=== PATIENT | female | born 1940 | race Caucasian/White ===

== ENCOUNTER 2022-06-09 07:40 | Inpatient (IN) | payer OTHER ==
[~2022-06-09] VITALS: Ht 160 cm; Wt 70.3 kg
[~2022-06-09 07:40] MED LIST: ceFAZolin SODIUM 2 GM in D5W 100 ML IV ONE
[2022-06-09] MEDS ORDERED: ePHEDrine sulfate 50 MG/ML VIAL ONE (13:15)
[2022-06-09] MEDS ORDERED: GLUCAGON,HUMAN RECOMBINANT 1 MG VIAL ONE (13:15)
[2022-06-09] MEDS ORDERED: LR 1,000 ML IV.SOLN IV ONE (13:15)
[2022-06-09] MEDS ORDERED: PROPOFOL 200MG/ 20ML VIAL (DIPRIVAN) IV ONE (13:15)
[2022-06-09] MEDS ORDERED: HYDROmorphone 2 MG/ML VIAL ONE (13:15)
[2022-06-09] MEDS ORDERED: ROCURONIUM BROMIDE 10 MG/ML (ZEMURON) ONE (13:15)
[2022-06-09] MEDS ORDERED: SEVOFLURANE 15 MIN GAS INH ONE (13:15)
[2022-06-09] MEDS ORDERED: GLYCOPYRROLATE 0.2 MG/ML VIAL ONE (13:15)
[2022-06-09] MEDS ORDERED: NS IRRIG SOLN 1000 ML IR ONE (13:15)
[2022-06-09] MEDS ORDERED: ONDANSETRON HCL 4 MG/2 ML VIAL ONE (13:15)
[2022-06-09] MEDS ORDERED: BUPIVACAINE /PF 0.5% 30 ML VIAL ONE (13:15)
[2022-06-09] MEDS ORDERED: SUGAMMADEX SODIUM 200 MG/2 ML VIAL IV ONE (13:15)
[2022-06-09] MEDS ORDERED: ONDANSETRON HCL 4 MG/2 ML VIAL IVP PRN ×2 (13:30→17:30)
[2022-06-09] MEDS ORDERED: HYDROmorphone 1 MG/ML INJ. CARTRIDGE ONE (13:52)
[2022-06-09] MEDS: HYDROmorphone 1 MG/ML INJ. CARTRIDGE IVP PRN ×2 (13:55→14:05)
[2022-06-09 14:40] VITALS: BP_SYST 141
[2022-06-09 16:00] VITALS: BP_SYST 150
[2022-06-09 16:30] VITALS: BP_SYST 149
[2022-06-09 16:45] VITALS: BP_SYST 143
[2022-06-09] MEDS: HYDROcodone/ACETAMIN 10-325 MG TAB PO PRN ×2 (17:16→22:53)
[2022-06-09] MEDS ORDERED: LORazepam 2 MG/ML VIAL IVP PRN (17:30)
[2022-06-09] MEDS ORDERED: HYDROmorphone 1 MG/ML INJ. CARTRIDGE IVP PRN (17:30)
[2022-06-09 19:20] VITALS: BP_SYST 120
[2022-06-09] MEDS ORDERED: amLODIPine BESYLATE 5 MG TABLET PO PRN (20:30)
[2022-06-09] MEDS: LR 1,000 ML IV SCH (22:40)
[2022-06-10] MEDS ORDERED: PIPERACILLIN/TAZOBACTAM 3.375 GM/VIAL (ZOSYN) IV ONE (00:24)
[2022-06-10] MEDS: PIPERACILLIN/TAZO 3.375/DEX-IS 50 ML IV SCH ×5 (00:34→23:01)
[2022-06-10 01:20] VITALS: BP_SYST 112
[2022-06-10 07:31] LABS: BASOPHILS % (AUTO) 0.4 % (0.0-2.0); EOSINOPHILS # (AUTO) 0.2 K/uL (0.0-0.4); EOSINOPHILS % (AUTO) 2.5 % (0.0-4.0); HEMATOCRIT 39.1 % (36-48); HEMOGLOBIN 13.2 g/dL (12.0-16.0); LYMPHOCYTES # (AUTO) 0.9 K/uL (1.0-5.5); MEAN CORPUSCULAR HEMOGLOBIN 32 pg (27-31); MEAN CORPUSCULAR HGB CONC 34 % (32-36); MEAN CORPUSCULAR VOLUME 95 fL (79.0-98.0); MONOCYTES # (AUTO) 0.8 K/uL (0.0-1.0); MONOCYTES % (AUTO) 9.8 % (1.7-9.3); NEUTROPHILS # (AUTO) 6.1 K/uL (1.8-7.7); NEUTROPHILS % (AUTO) 76.3 % (40.0-70.0); PLATELET COUNT (AUTO) 196 K/uL (130-430); RED BLOOD CELL COUNT(AUTO) 4.12 MIL/uL (4.2-6.2); WHITE BLOOD COUNT (AUTO) 8.1 K/uL (4.8-10.8)
[2022-06-10 07:47] LABS: INR 1.2 (0.8-1.2); PROTHROMBIN TIME 11.9 SECS (9.5-12.5)
[2022-06-10 07:56] LABS: ALANINE AMINOTRANSFERASE 43 U/L (12-78); ANION GAP 6 (5-15); ASPARTATE AMINOTRANSFERASE 45 U/L (10-37); CALCIUM 8.2 mg/dL (8.4-11.0); CHLORIDE 105 mmol/L (98-107); CREATININE 1.29 mg/dL (0.55-1.30); GLUCOSE 107 mg/dL (70-99); TOTAL BILIRUBIN 1.3 mg/dL (0.0-1.0); UREA NITROGEN, BLOOD 17 mg/dL (8-21)
[2022-06-10 08:00] VITALS: BP_SYST 117
[2022-06-10] MEDS: METOPROLOL SUCCINATE 50 MG TAB.SR.24H (TOPROL XL) PO SCH (09:00)
[2022-06-10 12:00] VITALS: BP_SYST 92
[2022-06-10] MEDS: LR 1,000 ML IV SCH ×2 (12:19→23:01)
[2022-06-10] MEDS ORDERED: PROPOFOL 200MG/ 20ML VIAL (DIPRIVAN) IV ONE (13:00)
[2022-06-10] MEDS ORDERED: LR 1,000 ML IV.SOLN IV ONE (13:00)
[2022-06-10] MEDS ORDERED: SUCCINYLCHOLINE CHLORIDE 20 MG/ML(QUELICIN) ONE (13:00)
[2022-06-10] MEDS ORDERED: EPINEPHrine HCL 1 MG/ML VIAL ONE (13:00)
[2022-06-10] MEDS ORDERED: SEVOFLURANE 15 MIN GAS INH ONE (13:00)
[2022-06-10] MEDS ORDERED: ONDANSETRON HCL 4 MG/2 ML VIAL ONE (13:00)
[2022-06-10] MEDS ORDERED: DEXAMETHASONE SOD PHOSPHATE 4 MG/ML VIAL ONE (13:00)
[2022-06-10] MEDS ORDERED: SIMETHICONE 40 MG/0.6 ML ML ONE (13:00)
[2022-06-10] MEDS ORDERED: INDOMETHACIN 50 MG SUPP.RECT RC ONE (14:00)
[2022-06-10] MEDS ORDERED: iohexoL 240 mgI/mL, 50 ML INFUS..BTL IV ONE (14:29)
[2022-06-10] MEDS ORDERED: METOCLOPRAMIDE HCL 10 MG/2 ML VIAL IVP PRN (15:00)
[2022-06-10] MEDS ORDERED: ONDANSETRON HCL 4 MG/2 ML VIAL IVP PRN (15:00)
[2022-06-10] MEDS ORDERED: HYDROmorphone 1 MG/ML INJ. CARTRIDGE ONE (15:20)
[2022-06-10] MEDS ORDERED: NALOXONE HCL 0.4 MG/ML AMP (NARCAN) IVP PRN (15:30)
[2022-06-10] MEDS ORDERED: HYDROmorphone 1 MG/ML INJ. CARTRIDGE IVP PRN (15:30)
[2022-06-10] MEDS: HYDROcodone/ACETAMIN 10-325 MG TAB PO PRN (15:53)
[2022-06-10 19:40] VITALS: BP_SYST 141
[2022-06-11 00:10] VITALS: BP_SYST 107
[2022-06-11] MEDS: HYDROcodone/ACETAMIN 10-325 MG TAB PO PRN ×4 (02:38→22:13)
[2022-06-11] MEDS: PIPERACILLIN/TAZO 3.375/DEX-IS 50 ML IV SCH ×4 (05:04→23:57)
[2022-06-11 07:51] LABS: BASOPHILS % (AUTO) 0.1 % (0.0-2.0); HEMOGLOBIN 13.6 g/dL (12.0-16.0); LYMPHOCYTES # (AUTO) 0.8 K/uL (1.0-5.5); LYMPHOCYTES % (AUTO) 7.2 % (20.5-51.5); MEAN CORPUSCULAR HEMOGLOBIN 32 pg (27-31); MEAN CORPUSCULAR HGB CONC 34 % (32-36); MEAN CORPUSCULAR VOLUME 94 fL (79.0-98.0); MONOCYTES # (AUTO) 0.6 K/uL (0.0-1.0); MONOCYTES % (AUTO) 5.2 % (1.7-9.3); NEUTROPHILS # (AUTO) 9.8 K/uL (1.8-7.7); NEUTROPHILS % (AUTO) 87.5 % (40.0-70.0); PLATELET COUNT (AUTO) 203 K/uL (130-430); RED BLOOD CELL COUNT(AUTO) 4.25 MIL/uL (4.2-6.2); RED CELL DISTRIBUTION WIDTH 13.5 % (9.0-15.0); WHITE BLOOD COUNT (AUTO) 11.2 K/uL (4.8-10.8)
[2022-06-11 08:00] VITALS: BP_SYST 137
[2022-06-11 08:01] LABS: ALANINE AMINOTRANSFERASE 47 U/L (12-78); ALBUMIN 3.2 g/dL (3.4-4.8); ANION GAP 8 (5-15); ASPARTATE AMINOTRANSFERASE 46 U/L (10-37); CALCIUM 8.7 mg/dL (8.4-11.0); CHLORIDE 103 mmol/L (98-107); CREATININE 1.22 mg/dL (0.55-1.30); GLUCOSE 156 mg/dL (70-99); TOTAL BILIRUBIN 0.9 mg/dL (0.0-1.0); UREA NITROGEN, BLOOD 13 mg/dL (8-21)
[2022-06-11 08:07] LABS: LIPASE 3476 U/L (73-393)
[2022-06-11] MEDS: METOPROLOL SUCCINATE 50 MG TAB.SR.24H (TOPROL XL) PO SCH (09:05)
[2022-06-11] MEDS: LR 1,000 ML IV SCH ×2 (09:06→13:00)
[2022-06-11 12:00] VITALS: BP_SYST 142
[2022-06-11 16:00] VITALS: BP_SYST 144
[2022-06-11 19:00] VITALS: BP_SYST 128
[2022-06-11 20:00] VITALS: BP_SYST 128
[2022-06-12] VITALS: BP_SYST 126
[2022-06-12] MEDS: PIPERACILLIN/TAZO 3.375/DEX-IS 50 ML IV SCH ×4 (05:26→23:23)
[2022-06-12 05:33] LABS: BASOPHILS % (AUTO) 0.1 % (0.0-2.0); EOSINOPHILS # (AUTO) 0.3 K/uL (0.0-0.4); EOSINOPHILS % (AUTO) 2.5 % (0.0-4.0); HEMATOCRIT 38.7 % (36-48); HEMOGLOBIN 13.1 g/dL (12.0-16.0); LYMPHOCYTES # (AUTO) 1.3 K/uL (1.0-5.5); LYMPHOCYTES % (AUTO) 10.6 % (20.5-51.5); MEAN CORPUSCULAR HEMOGLOBIN 32 pg (27-31); MEAN CORPUSCULAR HGB CONC 34 % (32-36); MEAN CORPUSCULAR VOLUME 95 fL (79.0-98.0); MONOCYTES % (AUTO) 8.1 % (1.7-9.3); NEUTROPHILS # (AUTO) 9.5 K/uL (1.8-7.7); NEUTROPHILS % (AUTO) 78.7 % (40.0-70.0); PLATELET COUNT (AUTO) 197 K/uL (130-430); RED BLOOD CELL COUNT(AUTO) 4.09 MIL/uL (4.2-6.2); WHITE BLOOD COUNT (AUTO) 12.1 K/uL (4.8-10.8)
[2022-06-12 06:00] LABS: ALANINE AMINOTRANSFERASE 39 U/L (12-78); ALBUMIN 2.9 g/dL (3.4-4.8); ANION GAP 6 (5-15); ASPARTATE AMINOTRANSFERASE 29 U/L (10-37); CALCIUM 8.2 mg/dL (8.4-11.0); CHLORIDE 106 mmol/L (98-107); CREATININE 1.19 mg/dL (0.55-1.30); GLUCOSE 106 mg/dL (70-99); LIPASE 689 U/L (73-393); TOTAL BILIRUBIN 0.6 mg/dL (0.0-1.0); UREA NITROGEN, BLOOD 12 mg/dL (8-21)
[2022-06-12 08:00] VITALS: BP_SYST 145
[2022-06-12] MEDS: METOPROLOL SUCCINATE 50 MG TAB.SR.24H (TOPROL XL) PO SCH (09:08)
[2022-06-12] MEDS: HYDROcodone/ACETAMIN 10-325 MG TAB PO PRN ×3 (10:41→22:06)
[2022-06-12] MEDS: LR 1,000 ML IV SCH ×2 (10:41→23:20)
[2022-06-12 11:32] VITALS: BP_SYST 146
[2022-06-12 20:00] VITALS: BP_SYST 126
[2022-06-13] VITALS: BP_SYST 96
[2022-06-13 05:22] LABS: BASOPHILS % (AUTO) 0.2 % (0.0-2.0); EOSINOPHILS # (AUTO) 0.4 K/uL (0.0-0.4); EOSINOPHILS % (AUTO) 3.8 % (0.0-4.0); HEMATOCRIT 37.8 % (36-48); HEMOGLOBIN 12.8 g/dL (12.0-16.0); LYMPHOCYTES # (AUTO) 1.6 K/uL (1.0-5.5); LYMPHOCYTES % (AUTO) 15.5 % (20.5-51.5); MEAN CORPUSCULAR HEMOGLOBIN 32 pg (27-31); MEAN CORPUSCULAR HGB CONC 34 % (32-36); MEAN CORPUSCULAR VOLUME 95 fL (79.0-98.0); MONOCYTES # (AUTO) 1.2 K/uL (0.0-1.0); MONOCYTES % (AUTO) 11.5 % (1.7-9.3); NEUTROPHILS # (AUTO) 7.1 K/uL (1.8-7.7); PLATELET COUNT (AUTO) 186 K/uL (130-430); RED BLOOD CELL COUNT(AUTO) 3.96 MIL/uL (4.2-6.2); RED CELL DISTRIBUTION WIDTH 13.6 % (9.0-15.0); WHITE BLOOD COUNT (AUTO) 10.3 K/uL (4.8-10.8)
[2022-06-13] MEDS: PIPERACILLIN/TAZO 3.375/DEX-IS 50 ML IV SCH ×4 (05:28→23:20)
[2022-06-13 08:00] VITALS: BP_SYST 126
[2022-06-13] MEDS: METOPROLOL SUCCINATE 50 MG TAB.SR.24H (TOPROL XL) PO SCH ×2 (08:52→10:00)
[2022-06-13] MEDS: HYDROcodone/ACETAMIN 10-325 MG TAB PO PRN ×4 (08:53→22:32)
[2022-06-13 11:57] VITALS: BP_SYST 124
[2022-06-13] MEDS: LR 1,000 ML IV SCH ×2 (13:47→23:20)
[2022-06-13 16:08] VITALS: BP_SYST 128
[2022-06-13 20:00] VITALS: BP_SYST 108
[2022-06-14 00:57] VITALS: BP_SYST 110
[2022-06-14] MEDS: PIPERACILLIN/TAZO 3.375/DEX-IS 50 ML IV SCH ×2 (05:29→13:07)
[2022-06-14 08:00] VITALS: BP_SYST 157
[2022-06-14] MEDS: METOPROLOL SUCCINATE 50 MG TAB.SR.24H (TOPROL XL) PO SCH (08:47)
[2022-06-14] MEDS: HYDROcodone/ACETAMIN 10-325 MG TAB PO PRN (08:48)
[2022-06-14 12:08] VITALS: BP_SYST 124
[2022-06-14 12:26] VITALS: BP_SYST 127
[2022-06-14] MEDS: LR 1,000 ML IV SCH (13:00)
== END 2022-06-14 16:10 | disposition home or self-care (01) | DRG 417 ==
LOC: SDS 07:40 → SMU 07:41 → SDS 15:10
PROVIDERS: ADMIT Surgery; ATTEND Surgery
PROC: 0FT44ZZ Resection of Gallbladder, Percutaneous Endoscopic Approach (ICD-10-PCS; 2022-06-09)
PROC: BF12YZZ Fluoroscopy of Gallbladder using Other Contrast (ICD-10-PCS; 2022-06-09)
PROC: BF101ZZ Fluoroscopy of Bile Ducts using Low Osmolar Contrast (ICD-10-PCS; 2022-06-10)
PROC: 0FC98ZZ Extirpation of Matter from Common Bile Duct, Via Natural or Artificial Opening Endoscopic (ICD-10-PCS; principal; 2022-06-10 14:00)
DX: K80.64 Calculus of gallbladder and bile duct with chronic cholecystitis without obstruction (principal); K85.90 Acute pancreatitis without necrosis or infection, unspecified; K91.89 Other postprocedural complications and disorders of digestive system; I10 Essential (primary) hypertension; E78.5 Hyperlipidemia, unspecified; Z90.710 Acquired absence of both cervix and uterus; G89.29 Other chronic pain; M54.50 Low back pain, unspecified
CPT/HCPCS: 36415; 74181; 76000; 76705; 80053; 83690; 85025; 85610-TC; 85730-TC; 87081; 88304; C1727; C1758; J0171; J0330; J1100; J1170; J1610; J2405; J2543; J2704; J3490; J7060; J7120; Q9966; Q9967